=== PATIENT | male | born 1965 | race Caucasian/White ===

== ENCOUNTER → 2023-06-25 | Outpatient (RCR) | payer OTHER | LOC: M OT 08:38 → M ST 08:46 | PROVIDERS: ATTEND Family Medicine | DX: I63.9 Cerebral infarction, unspecified (principal); I69.391 Dysphagia following cerebral infarction ==

== ENCOUNTER 2023-07-24 08:53 | Outpatient (RCR) | payer OTHER | END 2023-07-26 | LOC: M OT 08:53 | PROVIDERS: ATTEND Family Medicine | DX: I63.9 Cerebral infarction, unspecified (principal) ==

== ENCOUNTER → 2023-08-26 | Outpatient (RCR) | payer OTHER | LOC: M ST 07-31 09:00 → M OT 07-31 09:02 → M ST 08-07 08:53 → M OT 08-07 08:53 → M ST 08-12 09:30 → M OT 08-17 10:30 → M ST 08-19 12:28 → M OT 08-19 12:29 | PROVIDERS: ATTEND Family Medicine | DX: I63.9 Cerebral infarction, unspecified (principal) ==

== ENCOUNTER 2023-09-23 10:23 | Outpatient (RCR) | payer OTHER | END 2023-09-24 | LOC: M ST 10:23 → M OT 10:23 | PROVIDERS: ATTEND Family Medicine | DX: I63.9 Cerebral infarction, unspecified (principal) ==

== ENCOUNTER 2023-10-21 11:15 | Outpatient (RCR) | payer OTHER | END 2023-10-25 | LOC: M OT 11:15 | PROVIDERS: ATTEND Family Medicine | DX: I63.9 Cerebral infarction, unspecified (principal) ==

== ENCOUNTER 2023-11-18 10:46 | Outpatient (RCR) | payer OTHER | END 2023-11-24 | LOC: M OT 10:46 | PROVIDERS: ATTEND Family Medicine | DX: I63.9 Cerebral infarction, unspecified (principal) ==

== ENCOUNTER 2023-12-23 12:30 | Outpatient (RCR) | payer OTHER | END 2023-12-25 | LOC: M ST 12:30 | PROVIDERS: ATTEND Family Medicine | DX: I63.9 Cerebral infarction, unspecified (principal) ==

== ENCOUNTER 2025-03-21 09:56 | Outpatient (RCR) | payer OTHER | END 2025-03-26 | LOC: M ST 09:56 | PROVIDERS: ATTEND Nurse Practitioner | DX: I69.328 Other speech and language deficits following cerebral infarction (principal) ==

== ENCOUNTER 2025-04-20 14:08 | Outpatient (RCR) | payer OTHER | END 2025-04-25 | LOC: M ST 14:08 | PROVIDERS: ATTEND Nurse Practitioner | DX: I69.328 Other speech and language deficits following cerebral infarction (principal) ==

== ENCOUNTER 2025-05-11 10:09 | Outpatient (RCR) | payer OTHER | END 2025-05-26 | LOC: M ST 10:09 | PROVIDERS: ATTEND Nurse Practitioner | DX: I69.328 Other speech and language deficits following cerebral infarction (principal) ==

== ENCOUNTER 2025-06-01 11:00 | Outpatient (RCR) | payer OTHER | END 2025-06-25 | LOC: M ST 11:00 | PROVIDERS: ATTEND Nurse Practitioner | DX: I69.328 Other speech and language deficits following cerebral infarction (principal) ==

== ENCOUNTER 2025-07-17 10:12 | Outpatient (RCR) | payer OTHER | END 2025-07-26 | LOC: M ST 10:12 | PROVIDERS: ATTEND Family Medicine | DX: I69.328 Other speech and language deficits following cerebral infarction (principal) ==